=== PATIENT | male | born 1950 | race Caucasian/White ===

== ENCOUNTER 2019-10-10 12:43 | Outpatient (CLI) | payer MEDICARE, OTHER ==
--- NOTE | 2019-10-10 14:11 | CT ---
LOW DOSE CT SCAN OF THE LUNGS WITHOUT IV CONTRAST: INDICATIONS: Colon cancer screening. History of nicotine dependence (the patient has been a smoker for 55 years). FINDINGS: There is a 4 mm ground glass nodule in the right upper lobe. There is a 3 mm peripheral solid nodule in the inferior aspect of the right upper lobe. No pleural or pericardial effusions are seen. There are vascular calcifications without evidence of a neurysm dilatation of the thoracic aorta. There are degenerative changes in the spine. IMPRESSION: Lung-RADS category 2 - benign findings. RECOMMENDATIONS: Continue annual screening with LDCT in 12 months. POS: OFF
== END 2019-10-10 12:44 | disposition home or self-care (01) ==
LOC: CT 12:43
PROVIDERS: ATTEND Family Medicine
DX: F17.210 Nicotine dependence, cigarettes, uncomplicated (principal)
CPT/HCPCS: G0297

== ENCOUNTER 2020-08-23 07:00 | Outpatient (CLI) | payer MEDICARE, OTHER ==
[2020-08-24 12:01] LABS: SARS-CoV-2 MS2 Positive; SARS-CoV-2 N Gene Negative; SARS-CoV-2 S Gene Negative; SARS-CoV-2 by NAA Not Detected (NotDetected); SARS-CoV-2 orf1ab Negative
== END 2020-08-23 07:01 | disposition home or self-care (01) ==
LOC: LABBT 07:00
PROVIDERS: ATTEND Internal Medicine
DX: K21.9 Gastro-esophageal reflux disease without esophagitis (principal); D12.6 Benign neoplasm of colon, unspecified; Z20.828 Contact with and (suspected) exposure to other viral communicable diseases
CPT/HCPCS: 87635; U0003

== ENCOUNTER → 2020-08-28 | Day surgery (SDC) | payer MEDICARE, OTHER | LOC: ENDO/OP 07:16 | PROVIDERS: ATTEND Internal Medicine | DX: K21.9 Gastro-esophageal reflux disease without esophagitis (principal); I12.9 Hypertensive chronic kidney disease with stage 1 through stage 4 chronic kidney disease, or unspecified chronic kidney disease; E11.22 Type 2 diabetes mellitus with diabetic chronic kidney disease; N18.9 Chronic kidney disease, unspecified; N20.0 Calculus of kidney; M19.90 Unspecified osteoarthritis, unspecified site; F17.200 Nicotine dependence, unspecified, uncomplicated; Z79.84 Long term (current) use of oral hypoglycemic drugs; Z79.899 Other long term (current) drug therapy | CPT/HCPCS: 91010 ==

== ENCOUNTER 2020-10-29 12:35 | Outpatient (CLI) | payer MEDICARE, OTHER ==
--- NOTE | 2020-10-29 14:04 | MRI ---
MRI of thethoracic spine: 10/29/2020 COMPARISON:None available HISTORY:Thoracic radiculopathy TECHNIQUE: Multiplanar multisequence MR imaging of thethoracic spine without contrast Findings:The sagittal STIR imaging demonstrates no focal area of osseous marrow edema. Multilevel dis c space and with degenerative endplate change and posterior osteophyte formation noted within the cervical spine, incompletely imaged on this exam, most prominent at C5-6 and C6-7. No focal area of abnormal signal intensity is identified within the thoracic cord. Mild left-sided facet hypertrophy at T1-2. No significant central canal or neural foraminal stenosis is seen at the T1-2, T2-3, or T3-4 level. At T4-5, T5-6, and T6-7 there is no significant central canal or neural foraminal stenosis. Right-sided facet hypertrophy is present at the T5-6 and T6-7 lev els. At the T7-8, T8-9, and T9-10 levels there is anterior osteophyte formation with no significant centra l canal or neural foraminal stenosis. At T10-11, T11-12, and T12-L1 there is no significant central canal or neural foraminal stenosis. The retroperitoneal structures are only partially imaged on this exam. No normal left kidney is visua lized. There is obscured signal lateral to the left renal fossa which could signify an abnormal left kidney. Recommend further assessment with CT of the abdomen. IMPRESSION:Degenerative changes with no significant central canal or neural foraminal stenosis within the thoracic spine. No evidence for thoracic spine fracture or abnormal signal within the thoracic cord. Questionable abnormality of the left kidney/left renal fossa, not well assessed on this examination. Recommend CT of the abdomen for further assessment. MORALES T
== END 2020-10-29 12:36 | disposition home or self-care (01) ==
LOC: BICMRI 12:35
PROVIDERS: ATTEND Family Medicine
DX: M47.24 Other spondylosis with radiculopathy, thoracic region (principal)
CPT/HCPCS: 72146

== ENCOUNTER 2020-11-12 12:54 | Outpatient (CLI) | payer MEDICARE, OTHER ==
[2020-11-12] MEDS ORDERED: Iopamidol 370 76% 100 ML VIAL ONE (13:29)
--- NOTE | 2020-11-12 13:59 | CT ---
EXAM: CT Abdomen W WO Con PROVIDED CLINICAL HISTORY: Abnormality on MRI thoracic spine COMPARISON: MRI thoracic spine 10/29/2020 FINDINGS: The visualized lung bases are free of significant opacity. 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 The right kidney appears diminutive as compared to the left. The left kidney demonstrates parapelvic cysts, without evidence for mass. No urinary tract calculi are evident involving the abdomen. The delayed images demonstrate no evidence f or a filling defect involving the renal collecting systems or opacified and visualized ureters. Mild nonspecific perinephric fat stranding on the left. The liver, spleen, pancreas and adrenal glands appear unremarkable. Changes of prior cholecystectomy are seen. There is moderate colonic fecal retention. No bowel dilata tion, additional fat stranding, free fluid or lymph node enlargement apparent. Scattered atherosclerotic vascular calcifications. IMPRESSION: No evidence for left renal mass.
== END 2020-11-12 12:55 | disposition home or self-care (01) ==
LOC: BICCT 12:54
PROVIDERS: ATTEND Family Medicine
DX: R93.89 Abnormal findings on diagnostic imaging of other specified body structures (principal); R93.422 Abnormal radiologic findings on diagnostic imaging of left kidney
CPT/HCPCS: 72125; 74170; Q9967

== ENCOUNTER 2021-04-15 15:30 | Outpatient (CLI) | payer MEDICARE, OTHER | END 2021-04-15 15:31 | disposition home or self-care (01) | LOC: BICCT 15:30 | PROVIDERS: ATTEND Family Medicine | DX: Z12.2 Encounter for screening for malignant neoplasm of respiratory organs (principal); F17.210 Nicotine dependence, cigarettes, uncomplicated; N26.1 Atrophy of kidney (terminal); I25.10 Atherosclerotic heart disease of native coronary artery without angina pectoris | CPT/HCPCS: 71271 ==

== ENCOUNTER 2023-03-31 11:10 | Outpatient (CLI) | payer MEDICARE, OTHER | END 2023-03-31 11:11 | disposition home or self-care (01) | LOC: SCSMRI 11:10 | PROVIDERS: ATTEND Specialist | DX: M51.16 Intervertebral disc disorders with radiculopathy, lumbar region (principal); M47.26 Other spondylosis with radiculopathy, lumbar region; M48.061 Spinal stenosis, lumbar region without neurogenic claudication; M51.37 Other intervertebral disc degeneration, lumbosacral region; M47.817 Spondylosis without myelopathy or radiculopathy, lumbosacral region | CPT/HCPCS: 72148 ==

== ENCOUNTER 2023-09-01 11:53 | Outpatient (CLI) | payer OTHER ==
[2023-09-01 13:36] LABS: Hematocrit 38.2 % (38.8-50.0); Mean Corpuscular Hemoglobin 32.9 pg (27.0-33.0); Mean Corpuscular Volume 96.7 fl (81.2-95.1); Mean Platelet Volume 10.4 fl (7.4-10.4); Platelet Count 242 10x3/uL (150-450); RBC Distribution Width 13.2 % (11.5-14.5); Red Blood Cell (RBC) Count 3.95 10x6/uL (4.32-5.72); White Blood Cell (WBC) Count 9.1 10x3/uL (3.5-10.5)
[2023-09-01 13:54] LABS: Anion Gap 17 mmol/L (10-20); BUN (Urea Nitrogen) 16 mg/dL (8.4-25.7); Calc. Creatinine Clearance 0 mL/min (70-130); Calcium 9.5 mg/dL (7.8-10.44); Carbon Dioxide 24 mmol/L (23-31); Chloride 104 mmol/L (98-107); Estimated GFR 52; Glucose 164 mg/dL (83-110); Potassium 4.6 mmol/L (3.5-5.1); Sodium 140 mmol/L (136-145)
== END 2023-09-01 11:54 | disposition home or self-care (01) ==
LOC: LABBT 11:53
PROVIDERS: ATTEND Neurological Surgery
DX: Z01.818 Encounter for other preprocedural examination (principal); M47.12 Other spondylosis with myelopathy, cervical region
CPT/HCPCS: 80048; 85027; 93005; 93010

== ENCOUNTER 2023-09-06 08:01 | Observation (INO) | payer OTHER ==
[2023-09-01 12:49] VITALS: BMI 35.7
[2023-09-06] MEDS ORDERED: Acetaminophen 500 MG TAB ONE (10:34)
[2023-09-06] MEDS ORDERED: fentaNYL PF 100 MCG/2 ML SYRINGE ONE (11:27)
[2023-09-06] MEDS ORDERED: Sodium Chloride 0.9% 100 ML ONE (11:27)
[2023-09-06] MEDS ORDERED: CEFAZOLIN 2 GM VIAL ONE (11:27)
[2023-09-06] MEDS ORDERED: HYDROmorphone 0.5 MG/0.5 ML SYRINGE ONE (11:27)
[2023-09-06] MEDS ORDERED: Ondansetron PF 4 MG/2 ML Vial ONE (11:36)
[2023-09-06] MEDS ORDERED: Rocuronium Bromide 10 MG/ML (10ML VIAL) ONE (11:36)
[2023-09-06] MEDS ORDERED: PROPOFOL 200 MG/20 ML VIAL ONE (11:36)
[2023-09-06] MEDS ORDERED: PHENYLEPHRINE-NS 100 MCG/ML 10 ML SYRINGE ONE (11:36)
[2023-09-06] MEDS ORDERED: Glycopyrrolate 0.2 MG/ML 5 ML SYRINGE ONE (11:36)
[2023-09-06] MEDS ORDERED: Dexamethasone 20 MG/5 ML VIAL ONE (11:36)
[2023-09-06] MEDS ORDERED: NEOSTIGMINE 3 MG/3 ML SYR 3 MG/3 ML SYRINGE ONE (11:36)
[2023-09-06] MEDS ORDERED: Lidocaine 1% PF 5 ML VIAL ONE (11:36)
[2023-09-06] MEDS ORDERED: Promethazine 25 MG TAB PO PRN (12:39)
[2023-09-06] MEDS ORDERED: Acetaminophen 325 MG TAB PO PRN (12:39)
[2023-09-06] MEDS ORDERED: HYDROcodone/Acetaminophen 10/325 mg Tablet PO PRN ×2 (12:39)
[2023-09-06] MEDS ORDERED: Cyclobenzaprine 10 MG TAB PO PRN (12:39)
[2023-09-06] MEDS ORDERED: Ondansetron PF 4 MG/2 ML Vial IVP PRN (12:39)
[2023-09-06] MEDS ORDERED: Mag-Al 1200 mg/1200 mg/30 ML UDCUP PO PRN (12:39)
[2023-09-06] MEDS ORDERED: Milk Of Magnesia 30 ML UDCUP PO PRN (12:39)
[2023-09-06] MEDS ORDERED: diphenhydrAMINE 50 MG/ML VIAL IVP PRN (12:39)
[2023-09-06] MEDS ORDERED: Glucagon 1 MG/ML KIT IM PRN (12:54)
[2023-09-06] MEDS ORDERED: Dextrose 5% in Water 1,000 ML IV PRN (12:54)
[2023-09-06] MEDS ORDERED: HumaLOG 300 UNITS/3 ML VIAL SC PRN (12:54)
[2023-09-06] MEDS ORDERED: Dextrose 50% Abboject 50 ML SYRINGE SLOW IVP PRN (12:54)
[2023-09-06] MEDS ORDERED: Promethazine HCl 25 MG/ML VIAL IM PRN (13:02)
[2023-09-06] MEDS ORDERED: Ondansetron HCl/PF 4 MG/2 ML Vial IVP PRN (13:02)
[2023-09-06] MEDS ORDERED: fentaNYL 50 mcg/mL 1 mL Vial ONE ×3 (13:31→15:15)
[2023-09-06] MEDS: Sodium Chloride 0.9% 1,000 ML IV SCH (16:56)
[2023-09-06] MEDS: Gabapentin 300 MG CAP PO SCH ×2 (17:36→20:49)
[2023-09-06] MEDS ORDERED: Hydrochlorothiazide 25 MG TAB PO SCH (19:30)
[2023-09-06] MEDS ORDERED: Losartan 25 MG TAB PO SCH (19:45)
[2023-09-06] MEDS: CEFAZOLIN 2 GM in Sodium Chloride 0.9% 100 ML IVPB SCH (20:20)
[2023-09-06] MEDS: Glimepiride 2 MG TAB PO SCH (20:49)
[2023-09-06] MEDS ORDERED: Alogliptin 25 MG TAB PO SCH (21:00)
[2023-09-07] MEDS: Sodium Chloride 0.9% 1,000 ML IV SCH (02:02)
[2023-09-07] MEDS: CEFAZOLIN 2 GM in Sodium Chloride 0.9% 100 ML IVPB SCH (03:47)
[2023-09-07 08:15] VITALS: TEMP 98.3
[2023-09-07] MEDS: Glimepiride 2 MG TAB PO SCH (08:51)
[2023-09-07] MEDS: Gabapentin 300 MG CAP PO SCH (08:52)
[2023-09-07] MEDS ORDERED: Hydrochlorothiazide 25 MG TAB PO SCH (09:00)
[2023-09-07] MEDS ORDERED: Losartan 25 MG TAB PO SCH (09:00)
[2023-09-07] MEDS ORDERED: Insulin Glargine 30 UNITS/0.3 ML VIAL SC SCH (09:00)
[2023-09-07] MEDS ORDERED: Loratadine 10 MG TAB PO SCH (09:00)
[2023-09-07 13:14] VITALS: BP 162/76
== END 2023-09-07 09:59 | disposition home or self-care (01) ==
LOC: SDC 08:01 → T4-B 16:28
PROVIDERS: ADMIT Neurological Surgery; ATTEND Neurological Surgery
PROC: 0RG1070 Fusion of Cervical Vertebral Joint with Autologous Tissue Substitute, Anterior Approach, Anterior Column, Open Approach (ICD-10-PCS; principal; 2023-09-06)
DX: M47.12 Other spondylosis with myelopathy, cervical region (principal); M48.02 Spinal stenosis, cervical region; E11.9 Type 2 diabetes mellitus without complications; I10 Essential (primary) hypertension; K21.9 Gastro-esophageal reflux disease without esophagitis; Z79.899 Other long term (current) drug therapy
CPT/HCPCS: 36416; C1713; J1100; J1170; J1815; J2405; J2704; J3010; J3490

== ENCOUNTER 2023-12-14 11:52 | Outpatient (CLI) | payer OTHER ==
[2023-12-14 13:15] LABS: Hematocrit 38.4 % (38.8-50.0); Hemoglobin 12.9 g/dL (13.5-17.5); Mean Corpuscular HGB CONC 33.6 g/dL (32.0-36.0); Mean Corpuscular Hemoglobin 32.3 pg (27.0-33.0); Mean Corpuscular Volume 96.2 fl (81.2-95.1); Platelet Count 260 10x3/uL (150-450); RBC Distribution Width 13.5 % (11.5-14.5); Red Blood Cell (RBC) Count 3.99 10x6/uL (4.32-5.72); White Blood Cell (WBC) Count 10.7 10x3/uL (3.5-10.5)
[2023-12-14 13:31] LABS: Anion Gap 16 mmol/L (10-20); BUN (Urea Nitrogen) 21 mg/dL (8.4-25.7); Calc. Creatinine Clearance 0 mL/min (70-130); Calcium 9.7 mg/dL (7.8-10.44); Carbon Dioxide 24 mmol/L (23-31); Chloride 103 mmol/L (98-107); Estimated GFR 49; Glucose 144 mg/dL (83-110); Sodium 139 mmol/L (136-145)
== END 2023-12-14 11:53 | disposition home or self-care (01) ==
LOC: LABBT 11:52
PROVIDERS: ATTEND Neurological Surgery
DX: Z01.818 Encounter for other preprocedural examination (principal); M48.062 Spinal stenosis, lumbar region with neurogenic claudication
CPT/HCPCS: 80048; 85027; 93005; 93010

== ENCOUNTER 2023-12-20 06:07 | Day surgery (SDC) | payer OTHER ==
[2023-12-14 12:23] VITALS: BMI 34.0
[2023-12-20] MEDS ORDERED: CEFAZOLIN 2 GM VIAL ONE (07:07)
[2023-12-20] MEDS ORDERED: Sodium Chloride 0.9% 100 ML ONE (07:07)
[2023-12-20] MEDS ORDERED: Vancomycin 1 GM VIAL ONE (07:08)
[2023-12-20] MEDS ORDERED: HYDROmorphone 0.5 MG/0.5 ML SYRINGE ONE ×5 (07:09→10:40)
[2023-12-20] MEDS ORDERED: Mag-Al 1200 mg/1200 mg/30 ML UDCUP PO PRN (07:13)
[2023-12-20] MEDS ORDERED: diphenhydrAMINE 25 MG CAP PO PRN (07:13)
[2023-12-20] MEDS ORDERED: Promethazine 25 MG TAB PO PRN (07:13)
[2023-12-20] MEDS ORDERED: Acetaminophen/Codeine 30-300mg Tablet PO PRN ×2 (07:13)
[2023-12-20] MEDS ORDERED: traMADol HCl 50 MG TAB PO PRN (07:13)
[2023-12-20] MEDS ORDERED: Milk Of Magnesia 30 ML UDCUP PO PRN (07:13)
[2023-12-20] MEDS ORDERED: Ondansetron PF 4 MG/2 ML Vial IVP PRN (07:13)
[2023-12-20] MEDS ORDERED: Albuterol 2.5 MG (3 mL) NEB NEB PRN (07:15)
[2023-12-20] MEDS ORDERED: Sodium Chloride 0.9% 1,000 ML IV SCH (07:15)
[2023-12-20] MEDS ORDERED: Dextrose 50% Abboject 50 ML SYRINGE SLOW IVP PRN (07:18)
[2023-12-20] MEDS ORDERED: Glucagon 1 MG/ML KIT IM PRN (07:18)
[2023-12-20] MEDS ORDERED: Dextrose 5% in Water 1,000 ML IV PRN (07:18)
[2023-12-20] MEDS ORDERED: HumaLOG 300 UNITS/3 ML VIAL SC PRN (07:18)
[2023-12-20] MEDS ORDERED: fentaNYL PF 100 MCG/2 ML SYRINGE ONE (07:19)
[2023-12-20] MEDS ORDERED: Ondansetron PF 4 MG/2 ML Vial ONE (07:20)
[2023-12-20] MEDS ORDERED: Rocuronium Bromide 10 MG/ML (10ML VIAL) ONE (07:20)
[2023-12-20] MEDS ORDERED: Lidocaine 1% PF 5 ML VIAL ONE (07:20)
[2023-12-20] MEDS ORDERED: Dexamethasone 4 mg/ml Vial ONE (07:20)
[2023-12-20] MEDS ORDERED: PROPOFOL 20 ML ONE (07:20)
[2023-12-20] MEDS ORDERED: Glimepiride 2 MG TAB PO SCH (08:00)
[2023-12-20] MEDS ORDERED: SUGAMMADEX SODIUM 200 MG/2 ML VIAL ONE (08:42)
[2023-12-20] MEDS ORDERED: Alogliptin 25 MG TAB PO SCH (09:00)
[2023-12-20] MEDS ORDERED: Gabapentin 300 MG CAP PO SCH (09:00)
[2023-12-20] MEDS ORDERED: Hydrochlorothiazide 25 MG TAB PO SCH (09:00)
[2023-12-20] MEDS ORDERED: Losartan 25 MG TAB PO SCH (09:00)
[2023-12-20] MEDS ORDERED: PHENYLEPHRINE-NS 100 MCG/ML 10 ML SYRINGE ONE (09:08)
[2023-12-20] MEDS ORDERED: Fentanyl 250 MCG/5 ML VIAL ONE (09:47)
[2023-12-20] MEDS ORDERED: Cyclobenzaprine 10 MG TAB ONE (10:00)
[2023-12-20] MEDS ORDERED: hydrALAZINE 20 MG/ML VIAL ONE (10:58)
[2023-12-20] MEDS ORDERED: HYDROcodone/Acetaminophen 5/325 mg Tablet ONE (11:39)
[2023-12-20] MEDS ORDERED: Tamsulosin HCl 0.4 MG CAP ONE (11:40)
== END 2023-12-20 14:10 | disposition home or self-care (01) ==
LOC: SDC 06:07
PROVIDERS: ATTEND Neurological Surgery
PROC: 01NB0ZZ Release Lumbar Nerve, Open Approach (ICD-10-PCS; principal; 2023-12-20)
DX: M48.062 Spinal stenosis, lumbar region with neurogenic claudication (principal); I10 Essential (primary) hypertension; E11.9 Type 2 diabetes mellitus without complications; Z88.8 Allergy status to other drugs, medicaments and biological substances; Z91.048 Other nonmedicinal substance allergy status
CPT/HCPCS: 36416; C1713; J0360; J1100; J1170; J2405; J2704; J3010; J3370; J3490